=== PATIENT | male | born 1975 | race Caucasian/White ===

== ENCOUNTER 2021-09-13 15:18 | Outpatient (CLI) | payer BC, MEDICARE, OTHER ==
[~2021-09-13] VITALS: Ht 188 cm; Wt 99.8 kg
[~2021-09-13 15:18] MED LIST: ALBUTEROL 90 MCG/ACT 8GM HFA INHALER INH PRN; ALBUTEROL SULFATE 2.5 MG/0.5 ML INH NEB SOLN INH PRN; EPINEPHrine INJ 1 MG/ML 1ML AMP IM PRN; NS 1,000 ML IV SCH; diphenhydrAMINE 50MG/ML VIAL (J1200) IV PRN; methylPREDNISolone 125MG 2ML VIAL IV PRN
[2021-09-13] MEDS ORDERED: CASIRIVIMAB/IMDEVIMAB 1,200 MG in NS 250 ML IV ONE (15:30)
[2021-09-13 15:49] VITALS: BP 124/73
[2021-09-13 16:19] VITALS: BP 123/82
[2021-09-13 16:49] VITALS: BP 118/75
[2021-09-13 17:49] VITALS: BP 118/76
== END 2021-09-13 17:49 | disposition home or self-care (01) ==
LOC: M OPCLI4PR 15:18
PROVIDERS: ATTEND Nurse Practitioner Primary Care
DX: U07.1 COVID-19 (principal)